=== PATIENT | male | born 1965 | race Caucasian/White ===

== ENCOUNTER 2016-11-10 04:00 | Inpatient (IN) | payer OTHER ==
--- NOTE | ~2016-11-10 | A ---
[facility] Nutrition Therapy DATE: 11/12/16 Patient: TYRONE PRICE Physician: ORA Address: [address] [facility] [address] Room/Bed: [address], Zip: [place] [address] Admit Date: 11/10/16 Date of : [birth year] Height: 5 9 Weight: 91 [phone] NUTRITIONAL ASSESSMENT: REASON: LOW BMI (13.6), UNINTENTIONAL WEIGHT LOSS, CONSULT "5'9", 92 LBS" PATIENT ADMITTED FOR DEPRESSION AND SI ATTEMPT PMH: HTN, MALNUTRITION, MEMORY ISSUES Anthropometrics: HT: 69", WT: 92#, BMI: 13.6, %IBW: 58 Labs: NO LABS AVAILABLE Meds: ZYPREXA, ZOLOFT, VISTARIL Assessment: PATIENT IS A 51 Y/O MALE ADMITTED FOR SI ATTEMPT AND DEPRESSION. PATIENT IS CURRENTLY UNEMPLOYED, ON DISABILITY, LIVES WITH HIS SISTER, AND DENIES ANY CURRENT SUBSTANCE ABUSE. PATIENT HAS A HX OF ETOH ABUSE AND HAS BEEN SOBER FOR THE LAST 10 MONTHS. IT IS NOTED THAT PATIENT IS A POOR HISTORIAN AND HAS CONFUSION. HIS MEDICATION COMPLIANCE PRIOR TO ADMIT IS QUESTIONABLE. PER NEEDS ASSESSMENT PATIENT'S SISTER STATED PATIENT HAS HAD A ~30# WEIGHT LOSS OVER LAST FEW MONTHS, HE HAS A POOR APPETITE, AND HE IS NOT SLEEPING WELL. THERE ARE NO SKIN OR GI ISSUES NOTED ATT. PSYCH MEDICATION MAY CAUSE AN INCREASE IN WEIGHT AND APPETITE. PATIENT IS CURRENTLY ON A REGULAR DIET WITH LARGE PORTION ENTREES AND ENSURE TID. Dx: INADEQUATE NUTRIENT INTAKE R/T CURRENT CONDITION, DEPRESSION AEB LOW BMI OF 13.6!, 58% IBW, WEIGHT LOSS, DECREASED APPETITE Intervention: REGULAR DIET, LARGE PORTIONS, SUPPLEMENTATION, MEDS PER MD, PSYCH Monitoring, Evaluation and Goals: 1. ADEQUATE PO INTAKES >75% OF MEALS 2. PREVENT, CORRECT MICRO/MACRO NUTRIENT DEFICIENCIES 3. WEIGHT; PROMOTE A STEADY WEIGHT GAIN TOWARDS A HEALTHY BMI OF 19-25 MONITOR: WEIGHTS, LABS, PO/FLUID INTAKES Recommendations: 1. CONTINUE REGULAR DIET WITH LARGE PORTION ENTREES AND ENSURE TID TOLERATED. OFFER SNACKS BETWEEN MEALS. 2. ENCOURAGE ADEQUTAE PO, FLUID, AND SUPPLEMENT INTAKES 3. OBTAIN WEIGHTS ROUTINELY (EVERY 3-4 DAYS) TO ENSURE PATIENT RECEIVES ADEQUATE ORAL [facility] Nutrition Therapy DATE: 11/12/16 Patient: TYRONE PRICE Physician: ORA Address: [address] [facility] [address] Room/Bed: [address], Zip: [place] [address] Admit Date: 11/10/16 Date of : [birth year] Height: 5 9 Weight: 91 [phone] INTAKES 4. OBTAIN NEW BMP OR CMP 5. IF PATIENT'S CONTINUES WITH POOR APPETITE OR POOR PO INTAKES, MAY NEED TO CONSIDER FURTHER NUTRITION INTERVENTIONS SUCH AN APPETITE STIMULANT OR ENTERAL NUTRITION RD TO F/U PER PROTOCOL AND PRN R/T PATIENT MODERATELY COMPROMISED Respectfully, ADRIAN GARCIA, STEVEN, LD Food and Nutritional Services [facility] cc: client file
--- NOTE | ~2016-11-10 | DS ---
Unit #: [id number] #: [id number] Patient: TYRONE PRICE [id number] [place] [address] [id number] MR#: [id number] NAME: TYRONE PRICE ROOM: [facility] Age: 51 Sex: M Admission Date: 11/10/2016 : 1965 Discharge Date: 11/16/2016 Attending Physician: Peña Kirby M.D. Primary Care Physician: Eleanor Felix A.P.R.N. DISCHARGE SUMMARY REASON FOR ADMISSION The patient is a 51-year-old white male, admitted to the [address] [place] [address] unit after he had allegedly ingested poison. HOSPITAL COURSE The patient was admitted to the [address] [place] [address] and placed on suicide precautions. He was continued on previously prescribed sertraline 50 mg daily and was begun on Zyprexa with dosage titration of 10 mg at h.s. to address mood disorganization of thought and thought blocking. The patient did show slow, but steady improvement and denied suicidal ideation. During his stay in the hospital, dietary was consulted given the patient's cachexia and additionally, it is recommended that the patient followup with his primary care physician regarding a possible chest lesion. Discharge was ordered following a positive family session. FINAL DIAGNOSES Major depressive disorder, severe, recurrent psychotic features; hypertension; chest lesion. DISPOSITION ON DISCHARGE The patient is discharged on the following medications: Metoprolol 25 mg b.i.d. for hypertension, sertraline 50 mg daily for depression, Vistaril 25 mg t.i.d. p.r.n. anxiety, and Zyprexa 10 mg at h.s. for psychosis. DISCHARGE INSTRUCTIONS No dietary or physical restrictions were placed upon the patient at the time of discharge. FOLLOWUP Followup will take place through the auspices of community mental health resources. PROGNOSIS The patient's prognosis is considered fair. Dictated by... Peña Kirby M.D. CB/aime TD: 11/16/2016 13:40 JOB #: [id number] Unit #: [id number] #: [id number] Patient: TYRONE PRICE DISCHARGE SUMMARY Page 1 of 1 X Peña Kirby MD DISCHARGE SUMMARY
--- NOTE | ~2016-11-10 | PN ---
Unit #: [id number] #: [id number] Patient: TYRONE PRICE [id number] [facility] [address] [place] [address] [id number] MR#: [id number] NAME: TYRONE PRICE ROOM: 14 Age: 51 Sex: M Admission Date: 11/10/2016 : 1965 Attending Physician: Peña Kirby M.D. Admitting Physician: Peña Kirby M.D. Primary Care Physician: Luis Otero PROGRESS NOTES DATE 11/14/2016 DISCUSSION The patient remains bizarre and slowed in his interactions with this physician. He continues to exhibit paucity of speech and some thought blocking. Staff reports that yesterday, he ran to the nurses station and demanded that 911 be called because he had "eaten some poison. Interestingly, this was the reason for his initial admission to the hospital but this took place several days ago. The patient remains fairly confused. We are uncertain as to what the patient's psychiatric baseline would represent and to this end, the patient's social work case manager Mr. Tan is in the process of contacting family as the patient does live with his sister and we plan discharge to her home upon improvement. We are at this point, however, uncertain as to what the patient's baseline represents. Dictated by... Peña Kirby M.D. SARAH/bo TD: 11/14/2016 23:09 JOB #: [id number] STEVE PROGRESS NOTES Page 1 of 1 X Peña Kirby MD PROGRESS NOTE
--- NOTE | ~2016-11-10 | CR63 ---
[facility] A Service of [facility] RADIOLOGY TEXT RESULTS PATIENT: TYRONE PRICE RAY LOCATION: P1S P114-1 : 63 UNIT #: [id number] AGE: [address]: Peña Kirby MD SEX: M ORDER DR: [id number] [facility] [address] [facility]. [place], [place] [address] [id number] I MR#: [id number] Acc #: [id number] NAME: TYRONE PRICE : 1965 SEX: M STUDY DATE/TIME: 11/11/2016 15:29 UNIT: P1S ROOM: [facility] STUDY DESCRIPTION: CR Chest 2 View Attending Physician: Peña Kirby M.D. Ordering Physician: Peña Kirby M.D. Primary Care Physician: Eleanor Felix A.P.R.N. MEDICAL IMAGING REPORT This report is preliminary unless electronic signature is present EXAM PA and lateral chest HISTORY Left supraclavicular lymphadenopathy. Weight loss. FINDINGS Two views of the chest demonstrate increased density over the lateral left upper lobe measuring nearly 6 cm in transverse diameter and 16 cm in craniocaudal dimension. This is new compared to chest x-ray 02/03/2015. This is smoothly marginated along its medial margin and could be a pleural-based mass. Further evaluation with chest CT with IV contrast is recommended. No additional pulmonary abnormality. Cardiac size and pulmonary vascularity are normal. Dictated by... Fransisco Elliott M.D. THIS IS AN ELECTRONICALLY VERIFIED REPORT Fransisco Elliott M.D. at 11/12/2016 3:05 PM DFL/psc TD: 11/12/2016 00:38 JOB #: [id number] MEDICAL IMAGING REPORT Page 1 of 1 COPY
--- NOTE | ~2016-11-10 | PN ---
Unit #: [id number] #: [id number] Patient: TYRONE PRICE [id number] [facility] [address] [place] [address] [id number] I MR#: [id number] NAME: TYRONE PRICE ROOM: P114 Age: 51 Sex: M Admission Date: 11/10/2016 : 1965 Attending Physician: Peña Kirby M.D. Admitting Physician: Peña Kirby M.D. Primary Care Physician: Luis Otero PROGRESS NOTES DATE 11/12/2016 DISCUSSION The patient remains seclusive to room and bizarre and in his interactions. He cannot account for the reason that his fingernails have been painted bright red. For example, when inquired by this physician as why this has occurred he continues to exhibited disorganization of thought, thought blocking, and paucity of speech. His Zyprexa trial is underway. Dictated by... Peña Kirby M.D. CB/bob TD: 11/13/2016 04:10 JOB #: [id number] STEVE PROGRESS NOTES Page 1 of 1 X Peña Kirby MD X PROGRESS NOTE
--- NOTE | ~2016-11-10 | HP ---
Unit #: [id number] #: [id number] Patient: IKE PRICE [id number] [facility] [address] [place] [address] [id number] MR#: [id number] NAME: IKE PRICE ROOM: P114 Age: 51 Sex: M Admission Date: 11/10/2016 : 1965 Attending Physician: Peña Kirby M.D. Admitting Physician: Peña Kirby M.D. Primary Care Physician: Eleanor Felix A.P.R.N. HISTORY AND PHYSICAL HISTORY OF PRESENT ILLNESS kIe is a 51-year-old male admitted on 11/10/[address] [place] [address] for depression and attempted suicide by ingesting rat poison. He is a poor historian therefore information is taken from records and family reports. PAST MEDICAL HISTORY Hypertension. He also is currently emaciated. He has a BMI of 13.5. PAST SURGICAL HISTORY None documented. The patient denies. SOCIAL HISTORY Denies tobacco, alcohol or illegal drug use. He is currently single and living with his sister. He is also grieving the of multiple family members and friend. FAMILY HISTORY Noncontributory. REVIEW OF SYSTEMS CONSTITUTIONAL: No fever or chills. HEENT: Denies any sore throat, ear pain or runny nose. CARDIOVASCULAR: Denies chest pain, irregular heart rhythm or palpitations. CHEST: Denies shortness of breath or cough. No hemoptysis. GASTROINTESTINAL: Denies nausea, vomiting, diarrhea or chronic constipation. ENDOCRINE: Denies history of increased thirst or urination. No recent significant weight loss or gain. GENITOURINARY: Denies dysuria, frequency, or hematuria. SKIN: Denies any rashes. HEMATOLOGIC: Denies history of increased bleeding or bruising. MUSCULOSKELETAL: Denies any hot, swollen joints. No generalized muscle pain. NEUROLOGIC: Denies problems with vision or speech. No frequent, severe headaches. No numbness, tingling or weakness in any extremities. Denies loss of bladder or bowel control. CURRENT MEDICATIONS Metoprolol, sertraline, vistaril. ALLERGIES Unit #: [id number] #: [id number] Patient: IKE PRICE No known drug allergies. PHYSICAL EXAMINATION GENERAL: Alert, disoriented, in no acute distress. VITAL SIGNS: Blood pressure 124/80, heart rate 117, respirations 20, temperature 97.1. BMI 13.59. HEIGHT: 5 foot 9 inches. WEIGHT: 92 pounds. SKIN: Warm and dry without rash or lesion. HEENT: Normocephalic. TMs not viewed. Oral and nasal passages clear. Conjunctivae clear. PERRLA. EOMs intact. NECK: Left sided subclavicular lymphadenopathy. Node measures approximately l2 centimeters round. No pain with palpation. HEART: Regular rate and rhythm without murmur. LUNGS: Clear. ABDOMEN: Soft, nontender, without masses or hepatosplenomegaly. : Not done. EXTREMITIES: No evidence of cyanosis, clubbing or edema. Moves all without focal deficit. NEUROLOGICAL: Grossly within normal limits. Cranial Nerves: II: Visual song are intact. III, IV AND : Extraocular movements are intact. Pupils are equal, round and reactive to light. V: Facial sensation is grossly normal. VII: Facial movements and expression are normal. VIII: Auditory acuity grossly intact. IX, X: Uvula is midline. Phonation is normal. XI: Patient shrugs shoulders and turns head normally. XII: Tongue protrudes in the midline. Sensory and Motor Function: Sensory and motor sensation is grossly normal. Motor: moves all extremities well. Coordination: Gait is normal. Deep Tendon Reflexes: Intact. IMPRESSION 1. Emaciation 2. BMI of 13.59 3. History of hypertension and enlarged left subclavicular lymph node. ECOMMENDATIONS Psychiatric, per psychiatrist. MEDICAL: I see no contraindications to participating in facility's activities. MEDICAL PROGNOSIS Good. MEDICAL CONDITION Stable. Dictated by... Luis Negrete/bob Unit #: [id number] #: [id number] Patient: IKE PRICE TD: 11/12/2016 00:23 JOB #: [id number] HISTORY AND PHYSICAL Page 1 of 1 X VALARIE ALVAREZ APRN HISTORY AND PHYSICAL
--- NOTE | ~2016-11-10 | PN ---
Unit #: [id number] #: [id number] Patient: TYRONE PRICE [id number] [facility] [address] [place] [address] [id number] MR#: [id number] NAME: TYRONE PRICE ROOM: P114 Age: 51 Sex: M Admission Date: 11/10/2016 : 1965 Attending Physician: Peña Kirby M.D. Admitting Physician: Peña Kirby M.D. Primary Care Physician: Lius Otero PROGRESS NOTES DATE 11/15/2016 DISCUSSION The patient remains flat and bizarre with impoverished speech and disorganization of thought. He complains of poor sleep last evening and upward titration of Zyprexa. We will continue. We remain uncertain as to what the patient's baseline might be and are attempting to contact family regarding this. Dictated by... Peña Kirby M.D. CB/bzg TD: 11/15/2016 12:46 JOB #: [id number] [facility] PROGRESS NOTES Page 1 of 1 X Peña Kirby MD X PROGRESS NOTE
--- NOTE | ~2016-11-10 | CO ---
Unit #: [id number] #: [id number] Patient: IKE PRICE [id number] [place] [address] [id number] I MR#: [id number] NAME: IKE PRICE ROOM: 14 Age: 51 Sex: M Admission Date: 11/10/2016 : 1965 Attending Physician: Peña Kirby M.D. Primary Care Physician: Eleanor Felix A.P.R.N. Consultation Date: 11/11/2016 CONSULTATION REPORT Medical consult was completed on 11/11/2016. HISTORY OF PRESENT ILLNESS Ike is a poor historian, and information is taken from records and family reports. During the history and physical, Ike was found to be (1) . His brother reports that over the past month, he has lost at least 30 pounds. They have not noticed any coughing, bloody stools, chest pain, or any other symptoms; however, he was extremely depressed and has not eating very much and rarely comes out of his room, so it is possible the symptoms may not have been noticed. During exam, he was found to have a left-sided subclavicular lymph node that measured approximately 2 cm and he is uncertain how long this has been present. There are no other complaints. PHYSICAL EXAMINATION CARDIAC: Regular rate and rhythm. No murmur, gallop or rub. RESPIRATORY: Clear to auscultation bilaterally. NECK: No masses or thyromegaly. Left subclavicular lymphadenopathy measuring 2 cm round. No other lymphadenopathy appreciated. ASSESSMENT AND PLAN Severe weight loss with lymphadenopathy. We will obtain a chest x-ray and also requested dietary consult for evaluation. Dictated by..Luis Jnae/aime TD: 11/11/2016 16:31 JOB #: [id number] Unit #: [id number] #: [id number] Patient: IKE PRICE CONSULTATION REPORT Page 1 of 1 X VALARIE ALVAREZ APRN CONSULTATION REPORT
--- NOTE | ~2016-11-10 | PA ---
Unit #: [id number] #: [id number] Patient: TYRONE PRICE [id number] [place] [address] [id number] MR#: [id number] NAME: TYRONE PRICE ROOM: [facility] Age: 51 Sex: M Admission Date: 11/10/2016 : 1965 Date of Assessment: 11/11/2016 Attending Physician: Peña Kirby M.D. Admitting Physician: Peña Kirby M.D. Primary Care Physician: Eleanor Felix A.P.R.N. PSYCHIATRIC ASSESSMENT DATE 11/11/2016 IDENTIFYING INFORMATION The patient is a 51-year-old single white male admitted to the [address] [place] [address] after he had ingested poison. CHIEF COMPLAINT None given. INFORMANT Patient RELIABILITY Fair HISTORY OF PRESENT ILLNESS The patient is a 51-year-old white male admitted to the [address] [place] [address] after he allegedly ingested rat poison, although there seems to be no laboratory evidence of this. The patient had summoned EMS and was taken to [facility] and subsequently medically cleared and brought to this facility. The patient reports that he was feeling depressed and does admit to ingestion of some sort of poison. The patient reports that he lives with his sister. He states that he is disabled secondary to his depression. He has lost a great deal of weight recently. His weight is now 92 pounds. The patient is continuing to endorse sadness and exhibit significant thought blocking during today's interview. He denies any overt psychotic symptoms of delusional or hallucinatory type however. The patient reports that he is followed at [facility] in [place] and has been prescribed sertraline for depression. He denies use of any psychoactive substances and is not a smoker. He has never been and has no children. PAST PSYCHIATRIC HISTORY As above. The patient denies prior psychiatric hospitalization. PAST MEDICAL HISTORY Significant for history of hypertension and malnutrition. MEDICATIONS 1. Metoprolol 2. Vistaril 3. Sertraline Unit #: [id number] #: [id number] Patient: TYRONE PRICE ALLERGIES None FAMILY HISTORY Noncontributory. SOCIAL HISTORY The patient lives with his sister. He states he completed high school. He is never and has no children. He is presently unemployed stating he is disabled secondary to his depression. He denies use of alcohol, tobacco or street drugs. MENTAL STATUS EXAM At this time, reveals the patient to be a cachectic white male appearing his stated age. He is in no apparent physical distress at the time of examination. He is in a state of significant dishevelment, however. He is awake and alert, and oriented to person and place. His speech is impoverished, but significant thought blocking noted. Formal testing of memory cognition not possible secondary to the patient's inability to comply. The patient's mood is dysphoric. The patient is currently endorsing positive suicidal ideation. He denies homicidal ideation, while denying overt psychotic symptoms. The patient exhibits disorganization of thought and thought blocking. Judgment and insight appear to be significantly impaired. ASSETS AND LIABILITIES Patient's assets to be assessed. Liabilities, poor compliance. ADMITTING DIAGNOSES Major depressive disorder, severe, recurrent with psychotic features, hypertension, malnutrition. PSYCHIATRIC PLAN/TREATMENT GOALS The patient remains hospitalized for safety and stabilization. A dietary consult has been ordered and I will increase the patient's sertraline to 100 mg daily. Additionally, I will add Olanzapine 5 mg at bedtime and also be addressing psychotic symptoms and augmenting the antidepressant effect of sertraline. ESTIMATED LENGTH OF STAY Seven to 10 days with follow up to take place through the auspices of [facility] in the [facility]. Dictated by.Joanna Kirby M.D. SARAH/cris TD: 11/11/2016 15:45 Unit #: [id number] #: [id number] Patient: TYRONE PRICE JOB #: [id number] PSYCHIATRIC ASSESSMENT Page 1 of 1 X Peña Kirby MD X PSYCHIATRIC ASSESSMENT
--- NOTE | ~2016-11-10 | PN ---
Unit #: [id number] #: [id number] Patient: TYRONE PRICE [id number] [facility] [address] [place] [address] [id number] I MR#: [id number] NAME: TYRONE PRICE ROOM: 14 Age: 51 Sex: M Admission Date: 11/10/2016 : 1965 Attending Physician: Peña Kirby M.D. Admitting Physician: Peña Kirby M.D. Primary Care Physician: Luis Otero PROGRESS NOTES DATE 11/13/2016 DISCUSSION The patient continues to exhibit thought blocking and paucity of speech. I will begin upward titration of Zyprexa increasing the patient's dose to 7.5 mg. Titration will have to be undertaken gradually given the patient's small stature and risk of fall. Dictated by... Peña Kirby M.D. CB/rich TD: 11/14/2016 07:19 JOB #: [id number] STEVE PROGRESS NOTES Page 1 of 1 X Peña Kirby MD X PROGRESS NOTE
== END 2016-11-16 14:53 | disposition home or self-care (01) | DRG 885 ==
LOC: P1S 15:44
DX: F33.3 Major depressive disorder, recurrent, severe with psychotic symptoms (principal); E41 Nutritional marasmus; R45.851 Suicidal ideations; E46 Unspecified protein-calorie malnutrition; Z68.1 Body mass index [BMI] 19.9 or less, adult; I10 Essential (primary) hypertension; R59.1 Generalized enlarged lymph nodes
CPT/HCPCS: 71020